=== PATIENT | male | born 1970 | race Caucasian/White ===

== ENCOUNTER 2017-04-07 15:02 | Emergency (ER) | payer MEDICAID ==
[~2017-04-07] VITALS: Ht 182.9 cm; Wt 92.2 kg
[2017-04-07 17:12] VITALS: BP 111/76
== END 2017-04-07 17:13 | disposition home or self-care (01) ==
LOC: ED 15:02
DX: S63.617A Unspecified sprain of left little finger, initial encounter (principal); E78.00 Pure hypercholesterolemia, unspecified; X58.XXXA Exposure to other specified factors, initial encounter; Y93.89 Activity, other specified; Y99.8 Other external cause status; Y92.89 Other specified places as the place of occurrence of the external cause
CPT/HCPCS: Q0092

== ENCOUNTER 2017-06-19 16:30 | Emergency (ER) | payer SELFPAY ==
[2017-06-19 18:49] VITALS: BP 113/72
== END 2017-06-19 18:49 | disposition home or self-care (01) ==
LOC: ED 16:30
DX: R10.31 Right lower quadrant pain (principal); E78.00 Pure hypercholesterolemia, unspecified; K57.90 Diverticulosis of intestine, part unspecified, without perforation or abscess without bleeding
CPT/HCPCS: J1885